=== PATIENT | male | born 1995 | race Caucasian/White ===

== ENCOUNTER 2016-09-02 20:10 | Emergency (ER) | payer OTHER ==
[2016-09-02] MEDS ORDERED: ONDANSETRON HCL INJ/PF 4 MG/2 ML SDV IV ONE (20:35)
[2016-09-02] MEDS ORDERED: MORPHINE SULFATE 10 MG/ML INJ IV ONE (20:35)
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
[2016-09-02 23:40] VITALS: BP 134/77
== END 2016-09-02 23:40 | disposition home or self-care (01) ==
LOC: ER 20:10
DX: S16.1XXA Strain of muscle, fascia and tendon at neck level, initial encounter (principal); S29.012A Strain of muscle and tendon of back wall of thorax, initial encounter; V43.52XA Car driver injured in collision with other type car in traffic accident, initial encounter; R51 Headache; M54.2 Cervicalgia; M89.8X8 Other specified disorders of bone, other site
CPT/HCPCS: 99284; 96374; 96375; 71010; 72110; 72070; 70450; 72125; J2270; J2405

== ENCOUNTER 2020-02-26 06:02 | Emergency (ER) | payer BC ==
--- NOTE | 2020-02-26 09:06 | ER Document Report ---
ED GI/ - General Chief Complaint: Abdominal Pain Stated Complaint: COVID EXPOSURE, STOMACH PAIN, DIARRHEA, HEADACHE Time Seen by Provider: 02/26/20 08:52 Mode of Arrival: Ambulatory Information source: Patient Notes: Otherwise healthy 24-year-old male patient presenting to the emergency depa rtment with complaints of left upper quadrant cramping. Patient reports the symptoms started yesterday. He has associated diarrhea but denies any fever, chills, nausea, vomiting. 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 Patient himself had COVID- 19 2 months ago, has since tested negative, states this feels different than when he had COVID-19 before. - Related Data Allergies/Adverse Reactions: No Known Allergies Allergy (Verified 02/26/20 08:47) Past Medical History - General Information source: Patient - Social History Smoking Status: Former Smoker Chew tobacco use (# tins/day): No Drug Abuse: None Family History: Reviewed & Not Pertinent Patient has homicidal ideation: No - Medical History Medical History: Negative Surgical Hx: Negative - Immunizations Immunizations up to date: Yes Review of Systems - Review of Systems Constitutional: No symptoms reported EENT: No symptoms reported Cardiovascular: No symptoms reported Respiratory: No symptoms reported Gastrointestinal: Abdominal pain Genitourinary: No symptoms reported Male Genitourinary: No symptoms reported Musculoskeletal: No symptoms reported Skin: No symptoms reported Hematologic/Lymphatic: No symptoms reported Neurological/Psychological: No symptoms reported Physical Exam - Vital signs Vitals: Temp Pulse Resp BP Pulse Ox 97.8 F 68 18 161/98 H 100 02/26/20 08:45 02/26/20 08:45 02/26/20 08:45 02/26/20 08:45 02/26/20 08:45 - Notes Notes: PHYSICAL EXAMINATION: GENERAL: Well-appearing, well-nourished and in no acute distress. HEAD: Atraumatic, normocephalic. EYES: Pupils equal round and reactive to light, extraocular movements intact, sclera anicteric, conjunctiva are normal. ENT: Nares patent, oropharynx clear without exudates. Moist mucous membranes. NECK: Normal range of motion, supple without lymphadenopathy LUNGS: Breath sounds clear to auscultation bilaterally and equal. No wheezes rales or rhonchi. HEART: Regular rate and rhythm without murmurs ABDOMEN: Soft, nondistended abdomen. Tenderness to palpation left upper quadrant. No guarding, no rebound. No masses appreciated. Musculoskeletal: Normal range of motion, no pitting or edema. No cyanosis. NEUROLOGICAL: Cranial nerves grossly intact. Normal speech, normal gait. Normal sensory, motor exams PSYCH: Normal mood, normal affect. SKIN: Warm, Dry, normal turgor, no rashes or lesions noted. Course - Re-evaluation Re-evalutation: 02/26/20 09:12 Patient appears well, nontoxic, vital signs reviewed and are within normal limits. Patient does not appear to be in any acute distress. Labs pending. Unlikely that this is COVID-19, patient's only symptoms are left upper quadrant cramping after lifting heavy boxes and also a few episodes of diarrhea. - Vital Signs Vital signs: Temp Pulse Resp BP Pulse Ox 97.8 F 68 18 161/98 H 100 02/26/20 08:45 02/26/20 08:45 02/26/20 08:45 02/26/20 08:45 02/26/20 08:45 - Laboratory Result Diagrams: 02/26/20 09:05 02/26/20 09:05 Laboratory results interpreted by me: 02/26/20 09:05 Glucose 134 H AST 72 H ALT 178 H Discharge - Discharge Clinical Impression: Abdominal cramping Condition: Stable Disposition: HOME, SELF-CARE Instructions: Antispasmodics ([facility]), Abdominal Pain ([facility]) Additional Instructions: Your work-up today was reassuring. Your labs were normal. Please take medication as prescribed. Please return to the emergency department with any of the warning signs as outlined on the abdominal pain instruction sheet. Try to increase the fiber in your diet to regulate your bowels. Prescriptions: Dicyclomine HCl [Bentyl 20 mg Tablet] 20 mg PO QID #40 tablet Forms: Return to Work
[2020-02-26 09:16] LABS: ABSOLUTE EOSINOPHILS # (AUTO) 0.1 10^3/uL (0.0-0.6); ABSOLUTE LYMPHOCYTES (AUTO) 1.5 10^3/uL (0.5-4.7); ABSOLUTE MONOCYTES (AUTO) 0.5 10^3/uL (0.1-1.4); ABSOLUTE NEUT (AUTO) 3.2 10^3/uL (1.7-8.2); BASOPHILS % (AUTO) 0.5 % (0-2); EOSINOPHILS % (AUTO) 1.9 % (0-6); HEMOGLOBIN 15.8 g/dL (13.5-17.0); LYMPHOCYTES % (AUTO) 27.4 % (13-45); MEAN CORPUSCULAR HEMOGLOBIN 30.3 pg (27.0-33.4); MEAN CORPUSCULAR HGB CONC 34.4 g/dL (32.0-36.0); MEAN CORPUSCULAR VOLUME 88 fl (80-97); MONOCYTES % (AUTO) 9.4 % (3-13); PLATELET COUNT 172 10^3/uL (150-450); RED BLOOD COUNT 5.22 10^6/uL (4.35-5.55); RED CELL DISTRIBUTION WIDTH 13.1 % (11.5-14.0); SEGMENTED NEUTROPHILS % (AUTO) 60.8 % (42-78); TOTAL CELLS COUNTED % (AUTO) 100 %; WHITE BLOOD COUNT 5.3 10^3/uL (4.0-10.5)
[2020-02-26 09:18] LABS: APPEARANCE,URINE CLEAR; BILIRUBIN,URINE NEGATIVE (NEGATIVE); COLOR,URINE YELLOW; GLUCOSE, URINE NEGATIVE (NEGATIVE); KETONES,URINE NEGATIVE (NEGATIVE); LEUKOCYTE ESTERASE,URINE NEGATIVE (NEGATIVE); NITRITE,URINE NEGATIVE (NEGATIVE); PROTEIN,URINE NEGATIVE (NEGATIVE); URINE SPECIFIC GRAVITY 1.023; UROBILINOGEN,URINE NEGATIVE mg/dL (<2.0)
[2020-02-26 09:37] LABS: ALBUMIN 4.5 g/dL (3.5-5.0); ALKALINE PHOSPHATASE 82 U/L (38-126); ANION GAP 7 (5-19); ASPARTATE AMINO TRANSFERASE 72 U/L (17-59); BILIRUBIN,TOTAL 0.6 mg/dL (0.2-1.3); BLOOD UREA NITROGEN 13 mg/dL (7-20); CALCIUM 9.4 mg/dL (8.4-10.2); CARBON DIOXIDE 26 mmol/L (22-30); CHLORIDE 104 mmol/L (98-107); GLUCOSE 134 mg/dL (75-110); TOTAL PROTEIN 7.4 g/dL (6.3-8.2)
[2020-02-26 09:38] LABS: POTASSIUM 4.3 mmol/L (3.6-5.0)
[2020-02-26] MEDS ORDERED: DICYCLOMINE HCL INJ 20 MG/2 ML AMPULE IM ONE (10:17)
[2020-02-26 12:33] VITALS: BP 148/82
== END 2020-02-26 12:15 | disposition home or self-care (01) ==
LOC: ER 06:02
DX: R10.12 Left upper quadrant pain (principal); X50.0XXA Overexertion from strenuous movement or load, initial encounter; Y93.89 Activity, other specified; Y99.0 Civilian activity done for income or pay; R10.812 Left upper quadrant abdominal tenderness; R19.7 Diarrhea, unspecified; Z87.891 Personal history of nicotine dependence; Z20.828 Contact with and (suspected) exposure to other viral communicable diseases
CPT/HCPCS: 99284; 96372; 36415; 83690; 85025; 80053; 81001; J0500

== ENCOUNTER 2020-03-28 11:06 | Emergency (ER) | payer BC ==
--- NOTE | 2020-03-28 11:39 | ER Document Report ---
ED General - General Chief Complaint: Sore Throat Stated Complaint: SORE THROAT Time Seen by Provider: 03/28/20 11:39 Primary Care Provider: ADA WILLOUGHBY PA-C [Primary Care Provider] - Follow up as needed Mode of Arrival: Ambulatory Information source: Patient Notes: 03/28/20 11:28 - ED Nursing Note by LARA NORMAN Num: [id number] : 1995 Patient Age: 24 Patient presents to the ED with complaints of sore pain. Patient states it started yesterday and has continued today. Patient describes the pain as sharp, stabbing pain with constant throbbing. Strep and flu sample sent down to lab. will ctm MY NOTES today 24-year-old male arrives by POV after having 24 hours of severe sore throat. Patient reports he works at [employer] and will need a work note. He lives with his father. His father has no symptoms he denies any symptoms that he knows of with his coworkers. He denies being around any little children or sick animals. Denies any skin rash any nuchal rigidity. He reports he has a familiar history of migraines but has no headaches today. Oral pharyngeal physical exam reveals edematous uvula with injection; patient denies any hematuria or flank pain or recent strep throat. He did test positive for alvarado virus in late October and was on no medications just quarantined for 2 to 3 weeks. TRAVEL OUTSIDE OF THE [place] IN LAST 30 DAYS: No - HPI Onset: Yesterday Onset/Duration: Sudden, Persistent Quality of pain: Achy Severity: Mild Pain Level: 1 Associated symptoms: Sore throat, Weakness Exacerbated by: Denies Relieved by: Denies Similar symptoms previously: Yes Recently seen / treated by doctor: No - Related Data Allergies/Adverse Reactions: No Known Allergies Allergy (Verified 02/26/20 08:47) Past Medical History - General Information source: Patient - Social History Smoking Status: Never Smoker Cigarette use (# per day): No Chew tobacco use (# tins/day): No Smoking Education Provided: No Frequency of alcohol use: None Drug Abuse: None Lives with: Family Family History: Reviewed & Not Pertinent Patient has suicidal ideation: No Patient has homicidal ideation: No - Immunizations Immunizations up to date: Yes Review of Systems - Review of Systems Constitutional: See HPI, Weakness, Recent illness EENT: See HPI, Throat pain, Difficulty swallowing, Throat swelling Cardiovascular: No symptoms reported Respiratory: No symptoms reported Gastrointestinal: No symptoms reported Genitourinary: No symptoms reported Male Genitourinary: No symptoms reported Musculoskeletal: No symptoms reported Skin: No symptoms reported Hematologic/Lymphatic: No symptoms reported Neurological/Psychological: No symptoms reported Physical Exam - Vital signs Vitals: Temp Pulse Resp BP Pulse Ox 98.5 F 64 20 146/85 H 98 03/28/20 11:11 03/28/20 11:11 03/28/20 11:11 03/28/20 11:11 03/28/20 11:11 Interpretation: Hypertensive - HEENT Head: Normocephalic, Atraumatic Eyes: Normal Pupils: PERRL Sinus: Normal Nasal: Normal Mouth/Lips: Normal Mucous membranes: Normal Pharynx: Erythema Neck: Normal - Respiratory Respiratory status: No respiratory distress Chest status: Nontender Breath sounds: Normal Chest palpation: Normal - Cardiovascular Rhythm: Regular Heart sounds: Normal auscultation Murmur: No - Abdominal Inspection: Normal Distension: No distension Bowel sounds: Normal Tenderness: Nontender Organomegaly: No organomegaly - Rectal Prostate: Other - deferred - Genitourinary Scrotum: Other - deferred - Back Back: Normal - Extremities General upper extremity: Normal inspection General lower extremity: Normal inspection - Neurological Neuro grossly intact: Yes Cognition: Normal Orientation: AAOx4 [place] Coma Scale Eye Opening: Spontaneous [place] Coma Scale Verbal: Oriented [place] Coma Scale Motor: Obeys Commands [place] Coma Scale Total: 15 Speech: Normal Motor strength normal: LUE, RUE, LLE, RLE Sensory: Normal - Psychological Associated symptoms: Normal affect - Skin Skin Temperature: Warm Skin Moisture: Dry Course - Vital Signs Vital signs: Temp Pulse Resp BP Pulse Ox 98.5 F 65 16 138/75 H 99 03/28/20 12:44 03/28/20 12:44 03/28/20 12:44 03/28/20 12:44 03/28/20 12:44 Discharge - Discharge Clinical Impression: Influenza B Pharyngitis Qualifiers: Pharyngitis/tonsillitis etiology: unspecified etiology Qualified Code(s): J02.9 - Acute pharyngitis, unspecified Condition: Good Disposition: HOME, SELF-CARE Additional Instructions: Follow-up with personal doctor next week return to ER as needed encourage fluids take medicines as directed avoid drinking orange juice or eating caustic foods like pizza or popcorn; may need bananas rice applesauce Prescriptions: Azithromycin [Zithromax 250 mg Tablet] 250 mg PO ASDIR PRN #6 tablet PRN Reason: Forms: Return to Work Referrals: ADA WILLOUGHBY PA-C [Primary Care Provider] - Follow up as needed
[2020-03-28 12:45] VITALS: BP 138/75
[2020-03-28 12:55] LABS: A TYPE INFLUENZA AG NEGATIVE (NEGATIVE); B INFLUENZA AG POSITIVE (NEGATIVE)
== END 2020-03-28 12:20 | disposition home or self-care (01) ==
LOC: ER 11:06
DX: J11.1 Influenza due to unidentified influenza virus with other respiratory manifestations (principal); R53.1 Weakness
CPT/HCPCS: 87070; 87804; 87880; 99284

== ENCOUNTER 2020-04-02 08:15 | Emergency (ER) | payer BC ==
--- NOTE | 2020-04-02 12:06 | ER Document Report ---
ED Medical Screen (RME) - General Chief Complaint: Arm Pain Stated Complaint: ARM PAIN Time Seen by Provider: 04/02/20 11:59 Primary Care Provider: ADA WILLOUGHBY PA-C [Primary Care Provider] - Follow up as needed Mode of Arrival: Ambulatory Information source: Patient Notes: 24-year-old male presented to ED for a bruise-like area with a clear [place] around on the right upper arm. He states he does not remember any injury but is very tender to palpation. It is very hard at that area. He is alert oriented respirations regular nonlabored speaking in full sentences. He states he has had blood drawn but that was 2 weeks ago in the other arm. Ordered PT PTT blood work and venous Doppler for the upper arm. I have greeted and performed a rapid initial assessment of this patient. A comprehensive ED assessment and evaluation of the patient, analysis of test results and completion of medical decision making process will be conducted by an additional ED providers. TRAVEL OUTSIDE OF THE [place] IN LAST 30 DAYS: No - Related Data Allergies/Adverse Reactions: No Known Allergies Allergy (Verified 02/26/20 08:47) Past Medical History - Past Medical History Cardiac Medical History: Reports: Hx Hypertension - Immunizations Immunizations up to date: Yes Physical Exam - Vital signs Vitals: Temp Pulse Resp BP Pulse Ox 98.2 F 76 18 148/97 H 95 04/02/20 08:29 04/02/20 08:29 04/02/20 08:29 04/02/20 08:29 04/02/20 08:29 Course - Vital Signs Vital signs: Temp Pulse Resp BP Pulse Ox 98.2 F 76 18 148/97 H 95 04/02/20 08:29 04/02/20 08:29 04/02/20 08:29 04/02/20 08:29 04/02/20 08:29 Doctor's Discharge - Discharge Referrals: ADA WILLOUGHBY PA-C [Primary Care Provider] - Follow up as needed
[2020-04-02 12:30] LABS: ABSOLUTE BASOPHILS # (AUTO) 0.1 10^3/uL (0.0-0.2); ABSOLUTE EOSINOPHILS # (AUTO) 0.1 10^3/uL (0.0-0.6); ABSOLUTE LYMPHOCYTES (AUTO) 1.9 10^3/uL (0.5-4.7); ABSOLUTE MONOCYTES (AUTO) 0.5 10^3/uL (0.1-1.4); ABSOLUTE NEUT (AUTO) 3.8 10^3/uL (1.7-8.2); BASOPHILS % (AUTO) 0.9 % (0-2); EOSINOPHILS % (AUTO) 1.5 % (0-6); HEMATOCRIT 48.4 % (37.9-51.0); HEMOGLOBIN 17.3 g/dL (13.5-17.0); LYMPHOCYTES % (AUTO) 29.6 % (13-45); MEAN CORPUSCULAR HGB CONC 35.8 g/dL (32.0-36.0); MEAN CORPUSCULAR VOLUME 87 fl (80-97); MONOCYTES % (AUTO) 8.4 % (3-13); PLATELET COUNT 204 10^3/uL (150-450); RED BLOOD COUNT 5.59 10^6/uL (4.35-5.55); RED CELL DISTRIBUTION WIDTH 13.1 % (11.5-14.0); SEGMENTED NEUTROPHILS % (AUTO) 59.6 % (42-78); TOTAL CELLS COUNTED % (AUTO) 100 %; WHITE BLOOD COUNT 6.4 10^3/uL (4.0-10.5)
[2020-04-02 12:35] LABS: INTERNATIONAL RATION (INR) 0.96
[2020-04-02 12:36] LABS: PARTIAL THROMBOPLASTIN TIME 26.7 SEC (23.5-35.8)
[2020-04-02 12:50] LABS: ALKALINE PHOSPHATASE 84 U/L (38-126); ANION GAP 11 (5-19); ASPARTATE AMINO TRANSFERASE 61 U/L (17-59); BILIRUBIN,DIRECT 0.3 mg/dL (0.0-0.4); BILIRUBIN,TOTAL 0.8 mg/dL (0.2-1.3); BLOOD UREA NITROGEN 15 mg/dL (7-20); CARBON DIOXIDE 26 mmol/L (22-30); CHLORIDE 103 mmol/L (98-107); GLUCOSE 117 mg/dL (75-110); POTASSIUM 4.4 mmol/L (3.6-5.0); TOTAL PROTEIN 8.1 g/dL (6.3-8.2)
--- NOTE | 2020-04-02 14:33 | ER Document Report ---
ED General - General Chief Complaint: Arm Pain Stated Complaint: ARM PAIN Time Seen by Provider: 04/02/20 11:59 Primary Care Provider: ADA WILLOUGHBY PA-C [Primary Care Provider] - Follow up as needed Mode of Arrival: Ambulatory TRAVEL OUTSIDE OF THE [place] 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 He has been doing his work for several years. His mother noted a large bruise on his biceps area of right arm and encouraged him to come to the doctor because he could not recall any trauma. He says the area is moderately sore. He denies taking any aspirin. He is not on any type of anticoagulation. He takes an unknown antihypertensive medication is been on for several years. He denies any other abnormal bleeding or bruising. - Related Data Allergies/Adverse Reactions: No Known Allergies Allergy (Verified 02/26/20 08:47) Past Medical History - General Information source: Patient - Social History Smoking Status: Never Smoker Frequency of alcohol use: None Drug Abuse: None Lives with: Family Family History: Reviewed & Not Pertinent - Past Medical History Cardiac Medical History: Reports: Hx Hypertension Pulmonary Medical History: Reports: None EENT Medical History: Reports: None Neurological Medical History: Reports: None Endocrine Medical History: Reports: None Renal/ Medical History: Reports: None Malignancy Medical History: Reports None GI Medical History: Reports: None Musculoskeletal Medical History: Reports None Skin Medical History: Reports None Psychiatric Medical History: Reports: None Traumatic Medical History: Reports: None Infectious Medical History: Reports: None. Denies: Hx Hepatitis Past Surgical History: Reports: None - Immunizations Immunizations up to date: Yes Review of Systems - Review of Systems Notes: Constitutional: Negative for fever. Weight stable. HENT: Negative for sore throat. No epistaxis. Eyes: Negative for visual changes. Cardiovascular: Negative for chest pain. Respiratory: Negative for shortness of breath. Gastrointestinal: Negative for abdominal pain, vomiting or diarrhea. No melena or hematochezia. Genitourinary: Negative for dysuria. Negative for hematuria. Musculoskeletal: Negative for back pain. Skin: As per HPI. Neurological: Negative for headaches, weakness or numbness. 10 point ROS negative except as marked above and in HPI. Physical Exam - Vital signs Vitals: Temp Pulse Resp BP Pulse Ox 98.2 F 76 18 148/97 H 95 04/02/20 08:29 04/02/20 08:29 04/02/20 08:29 04/02/20 08:29 04/02/20 08:29 - Notes Notes: GENERAL: Stocky male patient of approximately stated age appearing in no acute distress. SKIN: 5.5 cm hematoma mid right biceps area which appears to be several days old. No other bruising noted. No petechiae. Good turgor no rashes. HEAD: Normocephalic atraumatic. EYES: PERRLA. EOMI. Conjunctivae and sclerae clear. No sub-conjunctival h emorrhages present. EARS: CANALS AND TMS CLEAR. NOSE: CLEAR. MOUTH: Moist mucosa. Good dentition. No stridor or edema. No drooling. NECK: Supple. No masses or thyromegaly. No adenopathy. Carotids 2+ without bruits. No JVD. BACK: Symmetrical without tenderness. CHEST: Respirations unlabored. Breath sounds clear and symmetrical. HEART: Regular rhythm. No murmur gallop or rub. ABDOMEN: Soft nontender without masses, organomegaly or rebound. Bowel sounds normally active. No bruits. GENITALIA: Deferred. EXTREMITIES: No edema. No calf tenderness. Cap refill less than 1.5 seconds. Dorsalis pedis and posterior tibial pulses 3+ and symmetrical. NEUROLOGICAL: GCS 15. Alert and oriented x3. Normal gait. Fluent speech. Cranial nerves II through XII intact. Sensorimotor and cerebellar normal. Normal tone. PSYCHIATRIC: Appropriate affect. Course - Re-evaluation Re-evalutation: 04/02/20 14:35 CBC normal. PT and PTT are normal. CMP is remarkable for mild elevation of transaminases and we note that these values have been present since a previous visit of 03/05/2020. Reviewing the chart from that visit he had some nausea vomiting and diarrhea at that time. He denies any known history of viral hep atitis. He denies any IV drug abuse. I think this is an uncomplicated traumatic bruise to the right biceps area although he does not specifically recall any trauma. He does however do a lot of strenuous physical labor and I think this is in likely to be an adequate explanation for the bruising. I think the finding of mild elevation in transaminases is likely unrelated to his presenting complaint. This does however raise possibility of undiagnosed viral hepatitis. He is not currently jaundiced or clinically ill. I recommended that he follow-up on this as well as his persistent blood pressure elevation with his primary care physician within the next 1 week. Findings, clinical impression and plan of treatment have been discussed with patient/family. Understanding of current findings and recommendations has been acknowledged by them and there is agreement regarding disposition and follow-up. - Vital Signs Vital signs: Temp Pulse Resp BP Pulse Ox 98.5 F 76 18 150/96 H 100 04/02/20 14:10 04/02/20 14:10 04/02/20 14:10 04/02/20 14:10 04/02/20 14:10 - Laboratory Result Diagrams: 04/02/20 12:19 04/02/20 12:19 Laboratory results interpreted by me: 04/02/20 04/02/20 12:19 12:19 RBC 5.59 H Hgb 17.3 H Glucose 117 H AST 61 H ALT 132 H Discharge - Discharge Clinical Impression: Bruise right upper extremity, Abnormal liver function test Condition: Stable Disposition: HOME, SELF-CARE Additional Instructions: See your doctor within the next 1 week for reevaluation of abnormal liver function testing and recheck of your blood pressure. Return here as needed if you develop other areas of significant bruising or if you have any abnormal bleeding from any source in the body. Forms: Elevated Blood Pressure, Return to Work Referrals: ADA WILLOUGHBY PA-C [Primary Care Provider] - Follow up as needed
[2020-04-02 15:02] VITALS: BP 144/88
--- NOTE | 2020-04-02 15:13 | RADIOLOGY REPORT (SQ) ---
EXAM DESCRIPTION: VENOUS UNILATERAL UPPER IMAGES COMPLETED DATE/TIME: 04/02/2020 3:00 pm REASON FOR STUDY: Firm bruise with no injury to the upper arm COMPARISON: None. TECHNIQUE: Dynamic and static kee scale and color images acquired of the right arm venous system. S elected spectral images acquired with additional compression and augmentation maneuvers. Images store d on PACS. LIMITATIONS: None. FINDINGS: INTERNAL JUGULAR VEIN: Normal phasicity, compression, augmentation. No visualized echogeni c material on kee scale. No defects on color images. Comparison opposite side normal. SUBCLAVIAN VEIN: Normal compression, augmentation. No visualized echogenic material on kee scale. No defects on color images. AXILLARY VEIN: Normal compression, augmentation. No visualized echogenic material on kee scale. No d efects on color images. BRACHIAL VEIN: Normal compression, augmentation. No visualized echogenic material on kee scale. No d efects on color images. BASILIC VEIN: Normal compression, augmentation. No visualized echogenic material on kee scale. No de fects on color images. CEPHALIC VEIN: Normal compression, augmentation. No visualized echogenic material on kee scale. No d efects on color images. OTHER: No other significant finding. CONTRALATERAL SUBCLAVIAN VEIN AND INTERNAL JUGULAR VEIN: Not imaged. IMPRESSION: NO EVIDENCE DVT OR SVT IN THE RIGHT ARM. TECHNICAL DOCUMENTATION: JOB ID: [id number] 2010 [employer]- All Rights Reserved Reading location - IP/workstation name: [email or web address]
== END 2020-04-02 15:02 | disposition home or self-care (01) ==
LOC: ER 08:15
DX: S40.021A Contusion of right upper arm, initial encounter (principal); X58.XXXA Exposure to other specified factors, initial encounter; R94.5 Abnormal results of liver function studies; I10 Essential (primary) hypertension
CPT/HCPCS: 36415; 80053; 85025; 85610; 85730; 93971; 99284

== ENCOUNTER 2020-04-07 08:35 | Emergency (ER) | payer BC ==
--- NOTE | 2020-04-07 12:13 | ER Document Report ---
ED ENT - General Chief Complaint: Sore Throat Stated Complaint: SORE THROAT Time Seen by Provider: 04/07/20 11:34 Primary Care Provider: ADA WILLOUGHBY PA-C [Primary Care Provider] - Follow up as needed Notes: CHIEF COMPLAINT: Continued sore throat HPI: 24-year-old male presenting for continued sore throat over the last 2 to 3 weeks. Patient states that he was seen several times in the emergency department for sore throat complaint had congestion slight cough initially. Patient states on March 28 he was diagnosed with influenza B states that is feeling better but he still has sore throat with swallowing and occasionally with talking. No voice change. Has not followed up with a primary care provider for evaluation of symptoms. No fevers. ROS: See HPI - all other systems were reviewed and are otherwise negative Constitutional: no fever Eyes: no drainage, no blurred vision ENT: no runny nose, + sore throat Cardiovascular: no chest pain Resp: no SOB, no cough GI: no vomiting, no diarrhea, no abdominal pain : no dysuria Integumentary: no rash Allergy: no hives Musculoskeletal: no extremity pain or swelling Neurological: no numbness/tingling, no weakness MEDICATIONS: I agree with the patient medications as charted by the RN. ALLERGIES: I agree with the allergies as charted by the RN. PAST MEDICAL HISTORY/PAST SURGICAL HISTORY: Reviewed and agree as charted by RN. SOCIAL HISTORY: Reviewed and agree as charted by RN. FAMILY HISTORY: No significant familial comorbid conditions directly related to patient complaint EXAM: Reviewed vital signs as charted by RN. CONSTITUTIONAL: Alert and oriented and responds appropriately to questions. Well-appearing; well-nourished HEAD: Normocephalic; atraumatic EYES: PERRL; Conjunctivae clear, sclerae non-icteric ENT: normal nose; no rhinorrhea; moist mucous membranes; pharynx without lesions noted, no uvula edema or deviation, no tonsillar hypertrophy, phonation normal NECK: Supple without meningismus; non-tender; no cervical lymphadenopathy, no masses CARD: RRR; no murmurs, no clicks, no rubs, no gallops; symmetric distal pulses RESP: Normal chest excursion without splinting or tachypnea; breath sounds clear and equal bilaterally; no wheezes, no rhonchi, no rales, pulse oximetry 98% on room air not hypoxic ABD/GI: Normal bowel sounds; non-distended; soft, non-tender, no rebound, no guarding; no palpable organomegaly or masses. BACK: The back appears normal and is non-tender to palpation, there is no CVA tenderness EXT: Normal ROM in all joints; no cyanosis, no effusions, no edema SKIN: Normal color for age and race; warm; dry; good turgor; no acute lesions noted NEURO: Moves all extremities equally; Motor and sensory function intact PSYCH: The patient's mood and manner are appropriate. Grooming and personal hygiene are appropriate. MDM: 24-year-old male presenting for continued sore throat there is no pharyngeal erythema or exudate. Phonation is normal. No significant anterior lymphadenopathy. On review of the patient records she has been tested for strep twice and throat cultures have not grown out strep but have grown out normal tameka. Will obtain a Monospot as this has not yet been obtained. If negative will treat symptomatically refer to ENT for further follow-up TRAVEL OUTSIDE OF THE [place] IN LAST 30 DAYS: No - Related Data Allergies/Adverse Reactions: No Known Allergies Allergy (Verified 02/26/20 08:47) Home Medications: HTN meds Past Medical History - Social History Smoking Status: Never Smoker Family History: Reviewed & Not Pertinent Patient has homicidal ideation: No - Past Medical History Cardiac Medical History: Reports: Hx Hypertension GI Medical History: Denies: Hx Hepatitis Infectious Medical History: Denies: Hx Hepatitis - Immunizations Immunizations up to date: Yes Physical Exam - Vital signs Vitals: Temp Pulse Resp BP Pulse Ox 99.1 F 93 20 150/86 H 98 04/07/20 09:49 04/07/20 09:49 04/07/20 09:49 04/07/20 09:49 04/07/20 09:49 Course - Re-evaluation Re-evalutation: 04/07/20 12:41 Mononucleosis test today was negative. Will refer to ENT for follow-up. Will place patient on Voltaren for pain - Vital Signs Vital signs: Temp Pulse Resp BP Pulse Ox 99.1 F 93 20 150/86 H 98 04/07/20 09:49 04/07/20 09:49 04/07/20 09:49 04/07/20 09:49 04/07/20 09:49 Discharge - Discharge Clinical Impression: Sore throat (viral) Condition: Stable Disposition: HOME, SELF-CARE Additional Instructions: Your mononucleosis test today was negative. Follow-up closely with ENT for further evaluation and treatment call for appointment. Take the Voltaren to help with the throat discomfort Prescriptions: Diclofenac Sodium [Voltaren 50 Mg Tablet.] 50 mg PO BID #20 tablet. Referrals: ADA WILLOUGHBY PA-C [Primary Care Provider] - Follow up as needed CASTILLO PILLAI DO [ASSOCIATE] - Follow up as needed
[2020-04-07 13:30] VITALS: BP 134/80
== END 2020-04-07 13:30 | disposition home or self-care (01) ==
LOC: ER 08:35
DX: J02.8 Acute pharyngitis due to other specified organisms (principal); B97.89 Other viral agents as the cause of diseases classified elsewhere; I10 Essential (primary) hypertension; Z79.899 Other long term (current) drug therapy
CPT/HCPCS: 36415; 86308; 87070; 87880; 99282

== ENCOUNTER 2020-04-08 20:44 | Emergency (ER) | payer BC ==
[2020-04-08 21:00] VITALS: BP 150/100
--- NOTE | 2020-04-08 21:50 | ER Document Report ---
ED General - General Chief Complaint: Other Stated Complaint: HEADACHE Time Seen by Provider: 04/08/20 20:57 Primary Care Provider: ADA WILLOUGHBY PA-C [Primary Care Provider] - Follow up as needed Mode of Arrival: Ambulatory Information source: Patient Notes: 24-year-old male coming in today for COVID testing. Apparently he tested positive for alvarado virus 5 months ago. Recently at work he was apparently exposed to a coworker who recently just tested positive. He was instructed to get retested to make sure he was not infected again. He currently has no symptoms whatsoever. TRAVEL OUTSIDE OF THE [place] IN LAST 30 DAYS: No - Related Data Allergies/Adverse Reactions: No Known Allergies Allergy (Verified 04/08/20 21:00) Home Medications: BP meds Past Medical History - General Information source: Patient - Social History Smoking Status: Former Smoker Family History: Reviewed & Not Pertinent Patient has homicidal ideation: No - Past Medical History Cardiac Medical History: Reports: Hx Hypertension GI Medical History: Denies: Hx Hepatitis Infectious Medical History: Denies: Hx Hepatitis - Immunizations Immunizations up to date: Yes Review of Systems - Review of Systems Notes: Constitutional: No fevers. No chills. EENT: No eye redness. No eye pain. No ear pain. No sore throat. Cardiovascular: No chest pain. No palpitations. Respiratory: No cough. No shortness of breath. No respiratory distress. Gastrointestinal: No abdominal pain. No nausea, vomiting, or diarrhea. Genitourinary: Atraumatic. No lesions. No pain. No discharge. Musculoskeletal: Atraumatic. No swelling. No deformities. Skin: No rash or lesions. Lymphatic: No swollen lymph nodes. Neurologic: No headache. No syncope. Psychiatric: No suicidal or homicidal ideation. Physical Exam - Vital signs Vitals: Temp Pulse Resp BP Pulse Ox 98.4 F 110 H 16 150/100 H 97 04/08/20 20:58 04/08/20 20:58 04/08/20 20:58 04/08/20 20:58 04/08/20 20:58 - Notes Notes: General: Well-developed, well-nourished. In no acute distress. Non-toxic appearing. Cardiac: Well-perfused. Regular rate and rhythm. No murmurs, rubs, or gallops. Pulmonary: No respiratory distress. No cyanosis. Bilateral lung fiels are clear to auscultation. Abdominal: Non-distended. Non-rigid. Bowels sounds are present in all four quadrants. No guarding or rebound. HEENT: Head is atraumatic. Conjunctivae not reddened. No tearing. PERRL. EOMI. Orbits atraumatic. No periorbital swelling or erythema. Oropharynx is without erythema, swelling, or exudates. Neck: Supple. No adenopathy. No meningismus. Dermatologic: Warm with good turgor. No rash. Atraumatic. Chest: Atraumatic. No chest wall tenderness to palpation. Musculoskeletal: Moves all extremities well. No range of motion deficits. no muscular or joint tenderness. No paraspinal muscle tenderness. no midline spinal tenderness or step-off. Genitourinary: Examination deferred Neurologic: No gross neurologic deficits. Psychiatric: Normal mood. Course - Vital Signs Vital signs: Temp Pulse Resp BP Pulse Ox 98.4 F 110 H 16 150/100 H 97 04/08/20 20:58 04/08/20 20:58 04/08/20 20:58 04/08/20 20:58 04/08/20 20:58 Discharge - Discharge Clinical Impression: Elevated blood pressure reading, Exposure to COVID-19 virus Condition: Good Disposition: HOME, SELF-CARE Additional Instructions: Typical results for the coronavirus test are in 72 to 96 hours. You should receive correspondence from the health department. The hospital also email you regarding your results. Stay home from work and quarantine until you know for sure. Forms: Return to Work Referrals: ADA WILLOUGHBY PA-C [Primary Care Provider] - Follow up as needed
== END 2020-04-08 21:59 | disposition home or self-care (01) ==
LOC: ER 20:44
DX: Z20.828 Contact with and (suspected) exposure to other viral communicable diseases (principal); I10 Essential (primary) hypertension; Z79.899 Other long term (current) drug therapy; Z86.19 Personal history of other infectious and parasitic diseases; Z87.891 Personal history of nicotine dependence
CPT/HCPCS: 99283; U0003; C9803; 87635

== ENCOUNTER 2020-04-16 21:52 | Emergency (ER) | payer BC ==
[2020-04-16] MEDS ORDERED: DOCUSATE SODIUM 100 MG/10 ML UDC AS ONE ×2 (22:24→23:32)
--- NOTE | 2020-04-16 22:25 | ER Document Report ---
ED Medical Screen (RME) - General Chief Complaint: Ear Pain Stated Complaint: LEFT EAR PAIN Time Seen by Provider: 04/16/20 22:24 Primary Care Provider: ADA WILLOUGHBY PA-C [Primary Care Provider] - Follow up as needed Notes: Patient complains of left ear pain that started today. Patient denies any fever or drainage from the ear. I have greeted and performed a rapid initial assessment of this patient. A comprehensive ED assessment and evaluation of the patient, analysis of test results and completion of the medical decision making process will be conducted by additional ED providers. TRAVEL OUTSIDE OF THE [place] IN LAST 30 DAYS: No - Related Data Allergies/Adverse Reactions: No Known Allergies Allergy (Verified 04/08/20 21:00) Past Medical History - Past Medical History Cardiac Medical History: Reports: Hx Hypertension GI Medical History: Denies: Hx Hepatitis Infectious Medical History: Denies: Hx Hepatitis - Immunizations Immunizations up to date: Yes Physical Exam - Vital signs Vitals: Temp Pulse Resp BP Pulse Ox 98.2 F 103 H 20 134/81 H 97 04/16/20 22:11 04/16/20 22:11 04/16/20 22:11 04/16/20 22:11 04/16/20 22:11 - General General appearance: Appears well, Alert Notes: No pain with movement of left helix, cerumen impaction to left ear Course - Vital Signs Vital signs: Temp Pulse Resp BP Pulse Ox 98.2 F 103 H 20 134/81 H 97 04/16/20 22:11 04/16/20 22:11 04/16/20 22:11 04/16/20 22:11 04/16/20 22:11 Doctor's Discharge - Discharge Referrals: ADA WILLOUGHBY PA-C [Primary Care Provider] - Follow up as needed
--- NOTE | 2020-04-16 23:58 | ER Document Report ---
HPI - HPI Time Seen by Provider: 04/16/20 22:24 Pain Level: 5 Context: Patient is a 24-year-old male with a history of hypertension who presents emergency department with a chief complaint of left ear pain. Patient states that his ear pain started tonight. Patient has a history of cerumen impactions in the past. Patient is currently with Colace in his left ear canal. In triage, patient had hard, dried cerumen. Denies any fever, body aches, or chills. - ROS Systems Reviewed and Negative: Yes All other systems reviewed and negative - CONSTITUTIONAL Constitutional: DENIES: Fever - EENT EENT: REPORTS: Ear Pain. DENIES: Sore Throat, Nasal Drainage-Clear, Nasal Drainage-Purulent, Congestion, Eye problems - NEURO Neurology: REPORTS: Headache - REPRODUCTIVE Reproductive: DENIES: : - DERM Skin Color: Normal Skin Problems: None Past Medical History - General Information source: Patient - Social History Smoking Status: Unknown if Ever Smoked Family History: Reviewed & Not Pertinent - Past Medical History Cardiac Medical History: Reports: Hx Hypertension GI Medical History: Denies: Hx Hepatitis Infectious Medical History: Denies: Hx Hepatitis - Immunizations Immunizations up to date: Yes Vertical Provider Document - CONSTITUTIONAL Agree With Documented VS: Yes Exam Limitations: No Limitations General Appearance: No Apparent Distress - INFECTION CONTROL TRAVEL OUTSIDE OF THE [place] IN LAST 30 DAYS: No - HEENT HEENT: Atraumatic, Normocephalic, PERRLA - NECK Neck: Normal Inspection - RESPIRATORY Respiratory: Breath Sounds Normal, No Respiratory Distress - CARDIOVASCULAR Cardiovascular: Regular Rate, Regular Rhythm Pulses: Normal: Radial - MUSCULOSKELETAL/EXTREMETIES Musculoskeletal/Extremeties: FROM - NEURO Level of Consciousness: Awake, Alert, Appropriate Motor/Sensory: No Motor Deficit, No Sensory Deficit - DERM Integumentary: Warm, Dry, No Rash Course - Re-evaluation Re-evalutation: 04/17/20 00:13 Patient states that he is now able to hear. He does have some edema and er ythema noted to his external auditory canal. Will place him on Ciprodex drops. No tenderness at the mastoid process. I have a low suspicion for mastoiditis. He will follow-up with ENT for cerumen impaction. Follow-up precautions were given. Verbal discharge instructions were given to the patient. They verbalized understanding. They are stable for discharge. - Vital Signs Vital signs: Temp Pulse Resp BP Pulse Ox 98.2 F 103 H 20 134/81 H 97 04/16/20 22:11 04/16/20 22:11 04/16/20 22:11 04/16/20 22:11 04/16/20 22:11 Discharge - Discharge Clinical Impression: Impacted cerumen of left ear Otitis externa Qualifiers: Otitis externa type: unspecified type Chronicity: acute Laterality: left Qualified Code(s): H60.502 - Unspecified acute noninfective otitis externa, left ear Headache Qualifiers: Headache type: other headache syndrome Qualified Code(s): G44.89 - Other headache syndrome Condition: Stable Disposition: HOME, SELF-CARE Additional Instructions: You were seen today in emergency department for left ear pain. You have a wax in your ears. It was cleaned out in the emergency department. Please follow-up with ENT if you continue to have problems with earwax. You start Debrox as needed for clean your ears. Sure not to use Q-tips to clean your ears. You can use a washcloth and water to clean your ears. Apply 4 drops of the Ciprodex eardrops to your left ear twice a day for 7 days. Continue ibuprofen and Tylenol for headache or pain. Prescriptions: Carbamide Peroxide [Debrox 6.5 % Otic Drops 15 ml] 10 drop OT DAILY PRN #[id number] PRN Reason: Referrals: ADA WILLOUGHBY PA-C [Primary Care Provider] - Follow up as needed CASTILLO PILLAI DO [ASSOCIATE] - Follow up as needed
[2020-04-17] MEDS ORDERED: CIPROFLOXACIN HCL/DEXAMETH OTIC DROP 7.5 ML AS ONE (00:16)
[2020-04-17 01:28] VITALS: BP 131/88
== END 2020-04-17 01:29 | disposition home or self-care (01) ==
LOC: ER 21:52
DX: H60.502 Unspecified acute noninfective otitis externa, left ear (principal); H61.22 Impacted cerumen, left ear; H92.02 Otalgia, left ear; R51.9 Headache, unspecified; I10 Essential (primary) hypertension
CPT/HCPCS: 99283; J3490

== ENCOUNTER 2020-04-20 22:02 | Emergency (ER) | payer OTHER, BC ==
[2020-04-20] MEDS ORDERED: IBUPROFEN 600 MG TABLET PO ONE (23:57)
--- NOTE | 2020-04-21 00:03 | ER Document Report ---
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 TRAVEL OUTSIDE OF THE [place] IN LAST 30 DAYS: No - Related Data Allergies/Adverse Reactions: No Known Allergies Allergy (Verified 04/08/20 21:00) Past Medical History - Social History Smoking Status: Unknown if Ever Smoked Family History: Reviewed & Not Pertinent - Past Medical History Cardiac Medical History: Reports: Hx Hypertension GI Medical History: Denies: Hx Hepatitis Infectious Medical History: Denies: Hx Hepatitis - Immunizations Immunizations up to date: Yes Review of Systems - Review of Systems Notes: Constitutional: No fevers. No chills. EENT: No eye redness. No eye pain. No ear pain. No sore throat. Cardiovascular: No chest pain. No palpitations. Respiratory: No cough. No shortness of breath. No respiratory distress. Gastrointestinal: No abdominal pain. No nausea, vomiting, or diarrhea. Genitourinary: Atraumatic. No lesions. No pain. No discharge. Musculoskeletal: Atraumatic. No swelling. No deformities. Positive for right shoulder pain Skin: No rash or lesions. Lymphatic: No swollen lymph nodes. Neurologic: No headache. No syncope. Psychiatric: No suicidal or homicidal ideation. Physical Exam - Notes Notes: General: Well-developed, well-nourished. In no acute distress. Non-toxic appearing. Cardiac: Well-perfused. Regular rate and rhythm. No murmurs, rubs, or gallops. Pulmonary: No respiratory distress. No cyanosis. Bilateral lung silva are clear to auscultation. Abdominal: Non-distended. Non-rigid. Bowels sounds are present in all four quadrants. No guarding or rebound. HEENT: Head is atraumatic. Conjunctivae not reddened. No tearing. PERRL. EOMI. Orbits atraumatic. No periorbital swelling or erythema. Oropharynx is without erythema, swelling, or exudates. Neck: Supple. No adenopathy. No meningismus. Dermatologic: Warm with good turgor. No rash. Atraumatic. Chest: Atraumatic. No chest wall tenderness to palpation. Musculoskeletal: Moves all extremities well. No range of motion deficits. no muscular or joint tenderness. No paraspinal muscle tenderness. no midline spinal tenderness or step-off. Right posterior shoulder tenderness to palpation. No bony deformities. No swelling. Normal range of motion. Distal neurovascular exam is intact Genitourinary: Examination deferred Neurologic: No gross neurologic deficits. Psychiatric: Normal mood. Course - Re-evaluation Re-evalutation: 04/21/20 00:00 Patient notes that he does not have any specific trauma but it sounds like he has a repetitive use type injury. Most likely shoulder tendinitis. Will offer him a sling, prescription ibuprofen, and a work note. Continue to use ice 20 minutes/h for pain and inflammation. Discharge - Discharge Clinical Impression: Shoulder tendinitis Qualifiers: Laterality: right Qualified Code(s): M77.8 - Other enthesopathies, not elsewhere classified Condition: Good Disposition: HOME, SELF-CARE Instructions: Sling as Treatment ([facility]), Tendonitis ([facility]) Prescriptions: Naproxen 500 mg PO BID 5 Days #10 tablet Referrals: ADA WILLOUGHBY PA-C [Primary Care Provider] - Follow up as needed
[2020-04-21 04:14] VITALS: BP 122/72
== END 2020-04-21 01:10 | disposition home or self-care (01) ==
LOC: ER 22:02
DX: M77.8 Other enthesopathies, not elsewhere classified (principal); M25.511 Pain in right shoulder; X50.3XXA Overexertion from repetitive movements, initial encounter; Y93.89 Activity, other specified; Y92.63 Factory as the place of occurrence of the external cause; Y99.0 Civilian activity done for income or pay; I10 Essential (primary) hypertension
CPT/HCPCS: 99283

== ENCOUNTER 2020-04-22 21:58 | Emergency (ER) | payer BC, OTHER ==
--- NOTE | 2020-04-22 22:39 | ER Document Report ---
ED General - General Chief Complaint: Ear Pain Stated Complaint: RIGHT EAR PAIN Primary Care Provider: ADA WILLOUGHBY PA-C [Primary Care Provider] - Follow up as needed Notes: Patient is a 24-year-old white male with a history of cerumen impaction who presents to the emergency department a day with a chief complaint of the same. 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 He states he was here recently with cerumen impaction of the left ear causing same complaints today is having in the right ear. Complains of muffled hearing in the right ear and some pain around the ear on that side of the head especially with increased noise. States he is tried to use the Debrox drops in the right ear without any significant improvement. He states last time he was here he have the ear irrigated and it was tremendously better. He denies any fever, nausea vomiting diarrhea, chills, night sweats, dizziness, neck pain or any other pain, complaints or concerns at this time. TRAVEL OUTSIDE OF THE [place] IN LAST 30 DAYS: No - Related Data Allergies/Adverse Reactions: No Known Allergies Allergy (Verified 04/22/20 22:33) Home Medications: HTN MEDS Past Medical History - Social History Smoking Status: Former Smoker Frequency of alcohol use: None Drug Abuse: None Family History: Reviewed & Not Pertinent - Past Medical History Cardiac Medical History: Reports: Hx Hypertension GI Medical History: Denies: Hx Hepatitis Infectious Medical History: Denies: Hx Hepatitis - Immunizations Immunizations up to date: Yes Review of Systems - Review of Systems Constitutional: denies: Fever EENT: denies: Eye pain Cardiovascular: denies: Chest pain Respiratory: denies: Cough Gastrointestinal: denies: Abdominal pain Genitourinary: denies: Burning Male Genitourinary: denies: Testicular pain Musculoskeletal: denies: Back pain Skin: denies: Change in color Hematologic/Lymphatic: denies: Easy bruising Neurological/Psychological: Headaches Physical Exam - Vital signs Vitals: Temp Pulse Resp BP Pulse Ox 98.5 F 94 20 157/99 H 98 04/22/20 22:06 04/22/20 22:06 04/22/20 22:06 04/22/20 22:06 04/22/20 22:06 - General General appearance: Appears well, Alert In distress: None - HEENT Head: Normocephalic, Atraumatic Eyes: Normal Conjunctiva: Normal Extraocular movements intact: Yes Eyelashes: Normal Pupils: PERRL Ears: Normal External canal: Cerumen impaction Tympanic membrane: Other - Obstructed on the right, left TM pearly kee with a normal EAC and clear canal Nasal: Normal Pharynx: Normal Neck: Normal - Respiratory Respiratory status: No respiratory distress Chest status: Nontender Breath sounds: Normal Chest palpation: Normal - Cardiovascular Rhythm: Regular Heart sounds: Normal auscultation - Neurological Neuro grossly intact: Yes Cognition: Normal Orientation: AAOx4 - Psychological Associated symptoms: Normal affect, Normal mood - Skin Skin Temperature: Warm Skin Moisture: Dry Skin Color: Normal Course - Re-evaluation Re-evalutation: 04/22/20 23:50 Right ear soaked with hydrogen peroxide solution. The ear was copiously irrigated with normal saline. A moderate amount of cerumen was removed. The patient reports feeling much better and hearing improved. He still has some retained cerumen. He will continue to gently flush the ear at home and use the Debrox drops he was previously given. He will continue to soak the ear as discussed. Counseled him not to poke or prod any instruments or Q-tips into the ear. Discussed with him at length the importance of outpatient follow-up and advised that he return here or any ER immediately with any new, persistent or worsening symptoms. He verbalized understood and agreed. - Vital Signs Vital signs: Temp Pulse Resp BP Pulse Ox 98.5 F 94 20 157/99 H 98 04/22/20 22:06 04/22/20 22:06 04/22/20 22:06 04/22/20 22:06 04/22/20 22:06 Discharge - Discharge Clinical Impression: Cerumen impaction Qualifiers: Laterality: right Qualified Code(s): H61.21 - Impacted cerumen, right ear Condition: Stable Disposition: HOME, SELF-CARE Instructions: Cerumen Impaction ([facility]) Additional Instructions: Follow-up with your regular doctor in 2 to 3 days for reevaluation. Return here or any ER immediately with any new, persistent or worsening symptoms. Forms: Return to Work Referrals: ADA WILLOUGHBY PA-C [Primary Care Provider] - Follow up as needed
[2020-04-23 00:13] VITALS: BP 150/89
== END 2020-04-23 00:12 | disposition home or self-care (01) ==
LOC: ER 21:58
DX: H61.21 Impacted cerumen, right ear (principal); I10 Essential (primary) hypertension
CPT/HCPCS: 99282

== ENCOUNTER 2020-04-24 22:13 | Emergency (ER) | payer BC, OTHER ==
[2020-04-24] MEDS ORDERED: ACETAMINOPHEN 325 MG TABLET PO ONE (23:34)
--- NOTE | 2020-04-24 23:37 | ER Document Report ---
ED ENT - General Chief Complaint: Sore Throat Stated Complaint: SORE THROAT Time Seen by Provider: 04/24/20 23:04 Primary Care Provider: ADA WILLOUGHBY PA-C [Primary Care Provider] - Follow up as needed TRAVEL OUTSIDE OF THE [place] IN LAST 30 DAYS: No - HPI Onset: This morning Onset/Duration: Sudden Quality of pain: Sharp Associated symptoms: Runny nose, Sore throat. denies: Cough, Ear drainage, Swollen glands Notes: Patient is a 24-year-old male with a past medical history of hypertension who presents with a sore throat. Patient states symptoms began this morning. He states it hurts to swallow. He has taken several doses of ibuprofen with minimal relief. Patient denies fevers or chills. No neck pain. No head pain. No earaches. He states he has a slight runny nose. Patient states he was to COVID tested 2 weeks ago and was negative. He is declining any COVID testing today. He denies being around any one with positive COVID. Patient denies any other symptoms. - Related Data Allergies/Adverse Reactions: No Known Allergies Allergy (Verified 04/22/20 22:33) Past Medical History - General Information source: Patient - Social History Smoking Status: Never Smoker Frequency of alcohol use: None Drug Abuse: None Family History: Reviewed & Not Pertinent Patient has homicidal ideation: No - Past Medical History Cardiac Medical History: Reports: Hx Hypertension GI Medical History: Denies: Hx Hepatitis Infectious Medical History: Denies: Hx Hepatitis - Immunizations Immunizations up to date: Yes Review of Systems - Review of Systems Notes: CONSTITUTIONAL: No fever, fatigue or weight loss. SKIN: No rash. HENT: Positive for sore throat and rhinorrhea EYES: No recent vision problems or eye pain. ENDOCRINE: No polyuria or polydipsia. CARDIOVASCULAR: No chest pain or edema. RESPIRATORY: No cough, shortness of breath, congestion, or wheezing. GASTROINTESTINAL: No abdominal pain, nausea, vomiting, bloody stools or diarrhea. GENITOURINARY: No dysuria. MUSCULOSKELETAL: No joint pain or swelling. LYMPHATIC: No swollen glands. NEUROLOGIC: No seizures. No headache, focal weakness or sensory changes. HEMATOLOGIC: No unusual bruising or bleeding. PSYCHIATRIC: No depression or anxiety. Physical Exam - Vital signs Vitals: Temp Pulse Resp BP Pulse Ox 99.1 F 91 14 144/102 H 97 10/09/20 22:34 04/24/20 22:34 04/24/20 22:34 04/24/20 22:34 04/24/20 22:34 - Notes Notes: VITAL SIGNS: Within normal limits. GENERAL: No acute distress, non-toxic appearance. HEAD: Normal with no signs of head trauma. EYES: EOMI, conjunctiva normal, no discharge. EARS: Hearing grossly intact. NOSE: Normal. THROAT: Oropharynx with slight erythema, no exudates. No peritonsillar abscess. NECK: Normal range of motion, no tenderness, supple, no lymphadenopathy, No adenopathy, no JVD. CHEST: Clear breath sounds bilaterally. No wheezes, rales, or rhonchi. CARDIAC: Regular rate and rhythm. S1 and S2, without murmurs, gallops, or rubs. VASCULAR: No Edema. ABDOMEN: Normal and soft LYMPATHTIC: No lymphadenopathy noted. MUSCULOSKELETAL: Good range of motion of all major joints. Extremities without clubbing, cyanosis or edema. NEUROLOGICAL: Alert and oriented x 3. No focal sensory or strength deficits. Speech normal. Follows commands appropriately. PSYCHIATRIC: Normal Affect, judgement and mood. SKIN: Normal appearance with no rashes or lesions. Course - Re-evaluation Re-evalutation: 04/24/20 23:53 Patient is afebrile. He appears well on exam. His airway is patent. He has some slight erythema of the posterior pharynx. No evidence for peritonsillar abscess. No cervical lymphadenopathy. Rapid strep was negative. It was sent for culture. I informed patient of the results. He declined any COVID testing as he recently had a negative test. Likely, this is a viral pharyngitis as he also has a runny nose. Patient was instructed to use lozenges, drink warm tea and honey, use Tylenol and ibuprofen as directed. He was given strict return precautions. He verbalized understanding. - Vital Signs Vital signs: Temp Pulse Resp BP Pulse Ox 97.4 F 94 14 145/97 H 97 04/24/20 23:46 04/24/20 23:46 04/24/20 23:46 04/24/20 23:46 04/24/20 23:46 Discharge - Discharge Clinical Impression: Pharyngitis Qualifiers: Pharyngitis/tonsillitis etiology: unspecified etiology Qualified Code(s): J02.9 - Acute pharyngitis, unspecified Condition: Good Disposition: HOME, SELF-CARE Instructions: Sore Throat ([facility]) Additional Instructions: Take Tylenol and ibuprofen as directed. Make sure you are drinking plenty of fluids. Use [id number] lozenges if needed. Return to the ER for any difficulty swallowing, fevers, difficulty breathing, any other concerning symptoms. Forms: Parent Work Note Referrals: ADA WILLOUGHBY PA-C [Primary Care Provider] - Follow up as needed
[2020-04-24 23:47] VITALS: BP 145/97
== END 2020-04-24 23:50 | disposition home or self-care (01) ==
LOC: ER 22:13
DX: J02.9 Acute pharyngitis, unspecified (principal); I10 Essential (primary) hypertension
CPT/HCPCS: 87070; 87077; 87880; 99283

== ENCOUNTER 2020-04-27 21:32 | Emergency (ER) | payer BC ==
[2020-04-27 22:12] VITALS: BP 139/98
--- NOTE | 2020-04-27 22:28 | ER Document Report ---
ED General - General Chief Complaint: Skin Problem Stated Complaint: SKIN ISSUE Time Seen by Provider: 04/27/20 22:13 Primary Care Provider: ADA WILLOUGHBY PA-C [Primary Care Provider] - Follow up as needed Mode of Arrival: Ambulatory Information source: Patient Notes: Healthy 24-year-old male coming in today with a small blister to his right middle finger that opened up and fell off leaving a small exposed area to the tip of his finger. 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 TRAVEL OUTSIDE OF THE [place] IN LAST 30 DAYS: No - Related Data Allergies/Adverse Reactions: No Known Allergies Allergy (Verified 04/27/20 22:08) Home Medications: bp meds Past Medical History - Social History Smoking Status: Never Smoker Frequency of alcohol use: None Drug Abuse: None Family History: Reviewed & Not Pertinent - Past Medical History Cardiac Medical History: Reports: Hx Hypertension Pulmonary Medical History: Reports: Hx Asthma GI Medical History: Denies: Hx Hepatitis Psychiatric Medical History: Reports: Hx Attention Deficit Hyperactivity Disorder, Hx Bipolar Disorder Infectious Medical History: Denies: Hx Hepatitis - Immunizations Immunizations up to date: Yes Review of Systems - Review of Systems Notes: Constitutional: No fevers. No chills. EENT: No eye redness. No eye pain. No ear pain. No sore throat. Cardiovascular: No chest pain. No palpitations. Respiratory: No cough. No shortness of breath. No respiratory distress. Gastrointestinal: No abdominal pain. No nausea, vomiting, or diarrhea. Genitourinary: Atraumatic. No lesions. No pain. No discharge. Musculoskeletal: Atraumatic. No swelling. No deformities. Skin: No rash or lesions. Lymphatic: No swollen lymph nodes. Neurologic: No headache. No syncope. Psychiatric: No suicidal or homicidal ideation. Physical Exam - Vital signs Vitals: Temp Pulse Resp BP Pulse Ox 98.4 F 114 H 20 139/98 H 96 04/27/20 21:56 04/27/20 21:56 04/27/20 21:56 04/27/20 21:56 04/27/20 21:56 - Notes Notes: General: Well-developed, well-nourished. In no acute distress. Non-toxic appearing. Cardiac: Well-perfused. Regular rate and rhythm. No murmurs, rubs, or gallops. Pulmonary: No respiratory distress. No cyanosis. Bilateral lung fiels are clear to auscultation. Abdominal: Non-distended. Non-rigid. Bowels sounds are present in all four quadrants. No guarding or rebound. HEENT: Head is atraumatic. Conjunctivae not reddened. No tearing. PERRL. EOMI. Orbits atraumatic. No periorbital swelling or erythema. Oropharynx is without erythema, swelling, or exudates. Neck: Supple. No adenopathy. No meningismus. Dermatologic: Small deroofed blister tip of right middle finger Chest: Atraumatic. No chest wall tenderness to palpation. Musculoskeletal: Moves all extremities well. No range of motion deficits. no muscular or joint tenderness. No paraspinal muscle tenderness. no midline spinal tenderness or step-off. Genitourinary: Examination deferred Neurologic: No gross neurologic deficits. Psychiatric: Normal mood. Course - Vital Signs Vital signs: Temp Pulse Resp BP Pulse Ox 98.4 F 114 H 20 139/98 H 96 04/27/20 21:56 04/27/20 21:56 04/27/20 21:56 04/27/20 21:56 04/27/20 21:56 Discharge - Discharge Clinical Impression: Blister of finger Qualifiers: Encounter type: initial encounter Qualified Code(s): S60.429A - Blister (nonthermal) of unspecified finger, initial encounter Condition: Good Disposition: HOME, SELF-CARE Instructions: Dressing Instructions for Open Wounds ([facility]) Prescriptions: Mupirocin [Bactroban 2% Ointment 22 gm] 1 applic TP BID #1 tube Referrals: ADA WILLOUGHBY PA-C [Primary Care Provider] - Follow up as needed
== END 2020-04-27 22:36 | disposition home or self-care (01) ==
LOC: ER 21:32
DX: S60.429A Blister (nonthermal) of unspecified finger, initial encounter (principal); X58.XXXA Exposure to other specified factors, initial encounter; I10 Essential (primary) hypertension
CPT/HCPCS: 99283

== ENCOUNTER 2020-04-30 21:19 | Emergency (ER) | payer BC ==
[2020-04-30 21:40] VITALS: BP 160/83
[2020-04-30] MEDS ORDERED: DOCUSATE SODIUM 100 MG/10 ML UDC PO ONE (22:53)
--- NOTE | 2020-04-30 23:21 | ER Document Report ---
HPI - HPI Time Seen by Provider: 04/30/20 22:40 Pain Level: 3 Context: Patient is a 24-year-old male who presents the emergency department with the chief complaint of right ear pain. Patient states that he has the same pain as he did when he had a left ear cerumen impaction. Patient states that he has been using Debrox in the right ear, but has not had any relief of his symptoms. - ROS Systems Reviewed and Negative: Yes All other systems reviewed and negative - CONSTITUTIONAL Constitutional: DENIES: Fever, Chills - EENT EENT: REPORTS: Ear Pain - Right. DENIES: Sore Throat, Nasal Drainage-Clear, Nasal Drainage-Purulent, Congestion, Eye problems - NEURO Neurology: DENIES: Headache - CARDIOVASCULAR Cardiovascular: DENIES: Chest pain - RESPIRATORY Respiratory: DENIES: Trouble Breathing, Coughing - GASTROINTESTINAL Gastrointestinal: DENIES: Abdominal Pain, Nausea, Patient vomiting - REPRODUCTIVE Reproductive: DENIES: : - DERM Skin Color: Normal Skin Problems: None Past Medical History - Social History Smoking Status: Former Smoker Frequency of alcohol use: None Drug Abuse: None Family History: Reviewed & Not Pertinent - Past Medical History Cardiac Medical History: Reports: Hx Hypertension Pulmonary Medical History: Reports: Hx Asthma GI Medical History: Denies: Hx Hepatitis Psychiatric Medical History: Reports: Hx Attention Deficit Hyperactivity Disorder, Hx Bipolar Disorder Infectious Medical History: Denies: Hx Hepatitis - Immunizations Immunizations up to date: Yes Vertical Provider Document - CONSTITUTIONAL Agree With Documented VS: Yes Exam Limitations: No Limitations General Appearance: No Apparent Distress - INFECTION CONTROL TRAVEL OUTSIDE OF THE [place] IN LAST 30 DAYS: No - HEENT HEENT: Atraumatic, Normocephalic, PERRLA. negative: Pharyngeal Exudate, Pharyngeal Tenderness, Pharyngeal Erythema, Tympanic Membrane Red, Tympanic Membrane Bulging Notes: Edema and erythema noted to right external auditory canal; cerumen impaction noted prior to disimpaction - RESPIRATORY Respiratory: Breath Sounds Normal, No Respiratory Distress - CARDIOVASCULAR Cardiovascular: Regular Rate, Regular Rhythm Pulses: Normal: Radial - MUSCULOSKELETAL/EXTREMETIES Musculoskeletal/Extremeties: FROM - NEURO Level of Consciousness: Awake, Alert, Appropriate Motor/Sensory: No Motor Deficit, No Sensory Deficit - DERM Integumentary: Warm, Dry Course - Re-evaluation Re-evalutation: 04/30/20 23:54 Cerumen impaction disimpacted by myself. Patient tolerated the procedure well. Patient does have a little bit of erythema noted to his right external auditory canal. We will place him on Ciprodex drops. He will follow up with his primary care provider. He will follow up with ENT as needed. Follow-up precautions were given. Verbal discharge instructions were given to the patient. They verbalized understanding. They are stable for discharge. - Vital Signs Vital signs: Temp Pulse Resp BP Pulse Ox 98.3 F 94 16 160/83 H 97 04/30/20 21:38 04/30/20 21:38 04/30/20 21:38 04/30/20 21:38 04/30/20 21:38 Discharge - Discharge Clinical Impression: Cerumen impaction Qualifiers: Laterality: right Qualified Code(s): H61.21 - Impacted cerumen, right ear Condition: Stable Disposition: HOME, SELF-CARE Additional Instructions: You were seen today in emergency department for right ear pain. You have a wax in your ears. It was cleaned out in the emergency department. Please follow-up with ENT if you continue to have problems with earwax. Be sure not to use Q- tips to clean your ears. You can use a washcloth and water to clean your ears. Place 4 drops of the Ciprodex to your right ear twice a day for 7 days. Forms: Return to Work Referrals: ADA WILLOUGHBY PA-C [Primary Care Provider] - Follow up as needed CASTILLO PILLAI DO [ASSOCIATE] - Follow up as needed
[2020-04-30] MEDS ORDERED: CIPROFLOXACIN HCL/DEXAMETH OTIC DROP 7.5 ML AD ONE (23:53)
== END 2020-04-30 23:00 | disposition home or self-care (01) ==
LOC: ER 21:19
DX: H61.21 Impacted cerumen, right ear (principal); H92.01 Otalgia, right ear; I10 Essential (primary) hypertension
CPT/HCPCS: 99283

== ENCOUNTER 2020-05-04 21:30 | Emergency (ER) | payer BC ==
[2020-05-04 21:48] VITALS: BP 153/100
--- NOTE | 2020-05-04 23:06 | ER Document Report ---
HPI - HPI Time Seen by Provider: 05/04/20 22:54 Pain Level: Denies Notes: 24-year-old male to the emergency department with complaints of sneezing that has gotten significantly worse over the past 24 to 48 hours. States that he will sneeze for over an hour. 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 Denies any fevers or chills. Denies any cough. He admits that he has a history of seasonal aller gies. As a young child, he used to be on a daily allergy medicine. However he has not been on one since. He states he saw his primary care who put him on aspirin but no allergy medicines. He denies any other symptoms such as sore throat, loss of taste, chest pain, shortness of breath, abdominal pain, diarrhea. Admits that he has not had a sneezing episode for over 3 hours. - ROS Systems Reviewed and Negative: Yes All other systems reviewed and negative - CONSTITUTIONAL Constitutional: DENIES: Fever, Chills - EENT EENT: DENIES: Sore Throat, Ear Pain, Congestion Notes: Sneezing - NEURO Neurology: DENIES: Headache - CARDIOVASCULAR Cardiovascular: DENIES: Chest pain - RESPIRATORY Respiratory: DENIES: Trouble Breathing, Coughing - GASTROINTESTINAL Gastrointestinal: DENIES: Abdominal Pain, Nausea, Patient vomiting, Diarrhea - MUSCULOSKELETAL Musculoskeletal: DENIES: Extremity pain, Back Pain, Neck Pain, Swelling - DERM Skin Color: Normal Skin Problems: None Past Medical History - General Information source: Patient - Social History Smoking Status: Never Smoker Frequency of alcohol use: None Drug Abuse: None Family History: Reviewed & Not Pertinent - Past Medical History Cardiac Medical History: Reports: Hx Hypertension Pulmonary Medical History: Reports: Hx Asthma GI Medical History: Denies: Hx Hepatitis Psychiatric Medical History: Reports: Hx Attention Deficit Hyperactivity Disorder, Hx Bipolar Disorder Infectious Medical History: Denies: Hx Hepatitis - Immunizations Immunizations up to date: Yes Vertical Provider Document - CONSTITUTIONAL Agree With Documented VS: Yes Exam Limitations: No Limitations General Appearance: WD/WN, No Apparent Distress - INFECTION CONTROL TRAVEL OUTSIDE OF THE [place] IN LAST 30 DAYS: No - HEENT HEENT: Atraumatic, Normocephalic, PERRLA Notes: Boggy nasal mucosa. Mild postnasal drip. No epistaxis. Airway is grossly patent. No voice change or drooling. No lymphadenopathy. TMs are clear bilaterally - NECK Neck: Normal Inspection, Supple - RESPIRATORY Respiratory: Breath Sounds Normal, No Respiratory Distress. negative: Rales, Rhonchi, Wheezing - CARDIOVASCULAR Cardiovascular: Regular Rate, Regular Rhythm, No Murmur - GI/ABDOMEN Gastrointestinal: Abdomen Soft, Abdomen Non-Tender, No Organomegaly Notes: Obesity - BACK Back: Normal Inspection - MUSCULOSKELETAL/EXTREMETIES Musculoskeletal/Extremeties: MAARPIT, FROM - NEURO Level of Consciousness: Awake, Alert, Appropriate Motor/Sensory: No Motor Deficit, No Sensory Deficit - DERM Integumentary: Warm, Dry, No Rash Course - Re-evaluation Re-evalutation: Impression: Allergic rhinitis. We will send patient home with Flonase and Claritin. Patient agrees with the plan. Follow-up with primary care. - Vital Signs Vital signs: Temp Pulse Resp BP Pulse Ox 98.2 F 101 H 16 153/100 H 96 05/04/20 21:46 05/04/20 21:46 05/04/20 21:46 05/04/20 21:46 05/04/20 21:46 Discharge - Discharge Clinical Impression: Sneezing Allergic rhinitis Qualifiers: Allergic rhinitis trigger: unspecified Allergic rhinitis seasonality: unspecified Qualified Code(s): J30.9 - Allergic rhinitis, unspecified Condition: Stable Disposition: HOME, SELF-CARE Instructions: Nasal Corticosteroid Inhaler ([facility]) Additional Instructions: Follow up with ENT without fail. Return if worse. Take medicines as prescribed. Prescriptions: Loratadine [Claritin 10 mg Tablet] 10 mg PO DAILY #30 tablet Fluticasone Propionate [Flonase Allergy Relief] 1 spray NS DAILY #1 spray.susp Forms: Return to Work Referrals: ADA WILLOUGHBY PA-C [Primary Care Provider] - Follow up in 3-5 days
== END 2020-05-04 23:10 | disposition home or self-care (01) ==
LOC: ER 21:30
DX: J45.909 Unspecified asthma, uncomplicated (principal); R06.7 Sneezing; R09.82 Postnasal drip
CPT/HCPCS: 99283

== ENCOUNTER 2020-05-06 12:42 | Emergency (ER) | payer BC ==
[2020-05-06 12:46] VITALS: BP 140/93
[2020-05-06] MEDS ORDERED: IBUPROFEN 800 MG TABLET PO ONE (12:51)
[2020-05-06] MEDS ORDERED: LIDOCAINE 2% VISCOUS SOLN 15 ML UDCUP PO ONE (12:51)
--- NOTE | 2020-05-06 12:52 | ER Document Report ---
HPI - HPI Patient complains to provider of: Sore throat Time Seen by Provider: 05/06/20 12:48 Onset: This morning Onset/Duration: Gradual Quality of pain: Achy Pain Level: 3 Context: Patient states he woke up with sore throat this morning. Patient denies any fever. Patient denies any other symptoms at this time. Associated Symptoms: Sore throat. denies: Earache, Fever, Headache, Vomiting, Rhinnorhea Exacerbated by: Denies Relieved by: Denies Similar symptoms previously: Yes Recently seen / treated by doctor: No - ROS ROS below otherwise negative: Yes Systems Reviewed and Negative: Yes All other systems reviewed and negative - CONSTITUTIONAL Constitutional: DENIES: Fever, Chills - EENT EENT: REPORTS: Sore Throat - mild erythema. DENIES: Ear Pain, Eye problems - NEURO Neurology: DENIES: Headache - CARDIOVASCULAR Cardiovascular: DENIES: Chest pain - RESPIRATORY Respiratory: DENIES: Trouble Breathing, Coughing - GASTROINTESTINAL Gastrointestinal: DENIES: Nausea, Patient vomiting - MUSCULOSKELETAL Musculoskeletal: DENIES: Extremity pain - DERM Skin Color: Normal Skin Problems: None Past Medical History - General Information source: Patient - Social History Smoking Status: Never Smoker Frequency of alcohol use: None Drug Abuse: None Family History: Reviewed & Not Pertinent Patient has homicidal ideation: No - Past Medical History Cardiac Medical History: Reports: Hx Hypertension Pulmonary Medical History: Reports: Hx Asthma GI Medical History: Denies: Hx Hepatitis Psychiatric Medical History: Reports: Hx Attention Deficit Hyperactivity Disorder, Hx Bipolar Disorder Infectious Medical History: Denies: Hx Hepatitis Surgical Hx: Negative - Immunizations Immunizations up to date: Yes Vertical Provider Document - CONSTITUTIONAL Agree With Documented VS: Yes Exam Limitations: No Limitations General Appearance: WD/WN, No Apparent Distress - INFECTION CONTROL TRAVEL OUTSIDE OF THE [place] IN LAST 30 DAYS: No - HEENT HEENT: Atraumatic, Normocephalic, Pharyngeal Tenderness, Pharyngeal Erythema. negative: Tympanic Membrane Red, Tympanic Membrane Bulging - NECK Neck: Normal Inspection, Supple. negative: Lymphadenopathy-Left, Lymphadenopathy-Right - RESPIRATORY Respiratory: Breath Sounds Normal, No Respiratory Distress, Chest Non-Tender - CARDIOVASCULAR Cardiovascular: Regular Rate, Regular Rhythm, No Murmur - MUSCULOSKELETAL/EXTREMETIES Musculoskeletal/Extremeties: MAEW - NEURO Level of Consciousness: Awake, Alert, Appropriate Motor/Sensory: No Motor Deficit - DERM Integumentary: Warm, Dry, No Rash Course - Re-evaluation Re-evalutation: 05/06/20 13:56 Rapid strep test negative, throat culture is pending at this time. Patient without any other symptoms, nontoxic in appearance. No concern for [employer]. Good return precautions discussed with patient. - Vital Signs Vital signs: Temp Pulse Resp BP Pulse Ox 98 F 94 16 140/93 H 97 05/06/20 12:45 05/06/20 12:45 05/06/20 12:45 05/06/20 12:45 05/06/20 12:45 - Laboratory Laboratory results interpreted by me: 05/06/20 13:36 Labs- All tests 24 hr 05/06/20 12:53 Group A Strep Rapid NEGATIVE Discharge - Discharge Clinical Impression: Sore throat Condition: Stable Disposition: HOME, SELF-CARE Instructions: Sore Throat ([facility]) Additional Instructions: Return immediately for any new or worsening symptoms Followup with your primary care provider, call tomorrow to make a followup appointment Throat culture is pending, we will call if you need any different treatment Prescriptions: Naproxen [Naprosyn 250 Nmg Tablet] 1 tab PO BID #14 tablet Forms: Return to Work Referrals: ADA WILLOUGHBY PA-C [Primary Care Provider] - Follow up as needed
== END 2020-05-06 13:52 | disposition home or self-care (01) ==
LOC: ER 12:42
DX: J02.9 Acute pharyngitis, unspecified (principal); J45.909 Unspecified asthma, uncomplicated; I10 Essential (primary) hypertension
CPT/HCPCS: 99283; 87070; 87880; J3490

== ENCOUNTER 2020-05-08 22:39 | Emergency (ER) | payer BC ==
[2020-05-08 22:47] VITALS: BP 147/98
--- NOTE | 2020-05-08 23:04 | ER Document Report ---
HPI - HPI Patient complains to provider of: sore throat Time Seen by Provider: 05/08/20 22:59 Pain Level: 3 Context: 24-year-old male past medical history significant for hypertension presents to the emergency room complaining of a sore throat that started approximately 8 hours prior to arrival. He denies any fevers. Did not take any medications for his symptoms. States is tolerating p.o. food and fluids without difficulty but does state it hurts to swallow. He was seen here 2 days ago for similar symptoms had a negative rapid strep, reviewed his throat culture was also negative for any bacteria. No recent travel. No COVID-19 exposure. Associated Symptoms: None Exacerbated by: Other - Swallowing Relieved by: Denies Similar symptoms previously: Yes - 2 days ago Recently seen / treated by doctor: Yes - Seen in the emergency room 2 days ago - ROS Systems Reviewed and Negative: Yes All other systems reviewed and negative - CONSTITUTIONAL Constitutional: DENIES: Fever, Chills - EENT EENT: REPORTS: Sore Throat. DENIES: Ear Pain, Eye problems - NEURO Neurology: DENIES: Headache, Weakness, Vision blurred, Dizzinesss / Vertigo - CARDIOVASCULAR Cardiovascular: DENIES: Chest pain - RESPIRATORY Respiratory: DENIES: Trouble Breathing, Coughing - GASTROINTESTINAL Gastrointestinal: DENIES: Abdominal Pain, Black / Bloody Stools - URINARY Urinary: DENIES: Dysuria, Urgency, Frequency - REPRODUCTIVE Reproductive: DENIES: : - MUSCULOSKELETAL Musculoskeletal: DENIES: Extremity pain Past Medical History - General Information source: Patient - Social History Smoking Status: Never Smoker Chew tobacco use (# tins/day): No Frequency of alcohol use: None Drug Abuse: None Family History: Reviewed & Not Pertinent Patient has homicidal ideation: No - Past Medical History Cardiac Medical History: Reports: Hx Hypertension Pulmonary Medical History: Reports: Hx Asthma GI Medical History: Denies: Hx Hepatitis Psychiatric Medical History: Reports: Hx Attention Deficit Hyperactivity Disorder, Hx Bipolar Disorder Infectious Medical History: Denies: Hx Hepatitis - Immunizations Immunizations up to date: Yes Vertical Provider Document - CONSTITUTIONAL Agree With Documented VS: Yes Exam Limitations: No Limitations General Appearance: Mild Distress Notes: VITAL SIGNS: Within normal limits. GENERAL: Mild acute distress, non-toxic appearance. HEAD: Normal with no signs of head trauma. EYES: PERRLA, EOMI, conjunctiva normal, no discharge. EARS: Hearing grossly intact. Tympanic membranes intact bilaterally without any erythema or bulging. Bilateral outer nails without erythema or swelling. NOSE: Normal. Turbinates are not erythematous, clear discharge is noted. Sinuses are nontender to palpation. THROAT: Oropharynx is normal. No pharyngeal erythema, no exudate. No tonsillar enlargement. No signs of a peritonsillar abscess. NECK: Normal range of motion, no tenderness, supple, no lymphadenopathy, No adenopathy, no JVD. Negative Meningismus, Negative brudzzinski, Negative Kernig's CHEST: Clear breath sounds bilaterally. No wheezes, rales, or rhonchi. CARDIAC: Regular rate and rhythm. S1 and S2, without murmurs, gallops, or rubs. VASCULAR: No Edema. Peripheral pulses normal and equal in all extremities. ABDOMEN: Normal and soft with no tenderness, no masses or pulsatile masses. GASTROINTESTINAL: Bowel sounds normal GENITOURINARY: Normal, No tenderness LYMPATHTIC: No lymphadenopathy noted. MUSCULOSKELETAL: Good range of motion of all major joints. Extremities without clubbing, cyanosis or edema. NEUROLOGICAL: Alert and oriented x 3. No focal sensory or strength deficits. Speech normal. Follows commands appropriately. PSYCHIATRIC: Normal Affect, judgement and mood. SKIN: Normal appearance with no rashes or lesions. - INFECTION CONTROL TRAVEL OUTSIDE OF THE [place] IN LAST 30 DAYS: No Course - Re-evaluation Re-evalutation: 05/08/20 23:04 Patient presents with a sore throat that started earlier this evening. He was seen here 2 days ago with a negative rapid strep. His throat culture is also negative. Patient states his sore throat got worse earlier this evening. He denies any fevers. No concerns for peritonsillar abscess. Talking in full sentences, handling his own secretions. Patient was counseled on the viral illness. Patient be discharged home on viscous lidocaine, supportive therapy, follow-up primary care physician if not improving in 2 to 3 days. Patient was given strict return to the emergency room guidelines. Return for any new or worsening symptoms. All questions were answered. Patient verbalized understanding and agrees with plan of care. 05/08/20 23:04 05/08/20 23:24 - Vital Signs Vital signs: Temp Pulse Resp BP Pulse Ox 98.4 F 100 18 147/98 H 97 05/08/20 22:58 05/08/20 22:45 05/08/20 22:45 05/08/20 22:45 05/08/20 22:45 Discharge - Discharge Clinical Impression: Sore throat Condition: Stable Disposition: HOME, SELF-CARE Instructions: Sore Throat ([facility]) Additional Instructions: Use the viscous lidocaine as prescribed. Outpatient follow-up with your primary care physician if not improving in 2 to 3 days. Return to the emergency room for any new or worsening symptoms. Prescriptions: Lidocaine HCl [Xylocaine 2% Viscous Soln 15 ml Udcup] 15 ml PO Q4H PRN #100 ml PRN Reason: Forms: Return to Work Referrals: ADA WILLOUGHBY PA-C [Primary Care Provider] - Follow up as needed
[2020-05-08] MEDS ORDERED: LIDOCAINE 2% VISCOUS SOLN 15 ML UDCUP PO ONE (23:09)
== END 2020-05-08 23:33 | disposition home or self-care (01) ==
LOC: ER 22:39
DX: J02.9 Acute pharyngitis, unspecified (principal); I10 Essential (primary) hypertension
CPT/HCPCS: 99283; J3490

== ENCOUNTER 2020-05-11 21:09 | Emergency (ER) | payer BC ==
--- NOTE | 2020-05-11 23:14 | ER Document Report ---
HPI - HPI Time Seen by Provider: 05/11/20 23:04 Pain Level: 3 Context: Patient is a 24-year-old male who presents emergency department with a chief complaint of sore throat. Patient has been seen here multiple times in the past 2 months for sore throat. Patient reports this is intermittent and comes and go in intensity. Patient reports he has multiple negative throat cultures, negative mono, and negative Covid test last month. Patient denies fever. Patient has no ear pain. Patient states that he is on oral antibiotics at this time and they are not helping. Patient has not followed up with his primary care physician or ENT. - REPRODUCTIVE Reproductive: DENIES: : Past Medical History - General Information source: Patient - Social History Smoking Status: Former Smoker Frequency of alcohol use: None Drug Abuse: None Lives with: Alone Family History: Reviewed & Not Pertinent - Past Medical History Cardiac Medical History: Reports: Hx Hypertension Pulmonary Medical History: Reports: Hx Asthma EENT Medical History: Reports: None Neurological Medical History: Reports: None Endocrine Medical History: Reports: None Renal/ Medical History: Reports: None Malignancy Medical History: Reports None GI Medical History: Reports: None. Denies: Hx Hepatitis Musculoskeletal Medical History: Reports None Skin Medical History: Reports None Psychiatric Medical History: Reports: Hx Attention Deficit Hyperactivity Disorder, Hx Bipolar Disorder Traumatic Medical History: Reports: None Infectious Medical History: Reports: None. Denies: Hx Hepatitis Past Surgical History: Reports: None - Immunizations Immunizations up to date: Yes Vertical Provider Document - CONSTITUTIONAL Agree With Documented VS: Yes Exam Limitations: No Limitations General Appearance: No Apparent Distress - INFECTION CONTROL TRAVEL OUTSIDE OF THE [place] IN LAST 30 DAYS: No - HEENT HEENT: Atraumatic, Normal ENT Exam, Normocephalic, PERRLA Notes: Throat is slightly erythematous. No exudate. Airway is patent. - NECK Neck: Normal Inspection - RESPIRATORY Respiratory: Breath Sounds Normal, No Respiratory Distress - CARDIOVASCULAR Cardiovascular: Regular Rate, Regular Rhythm - GI/ABDOMEN Gastrointestinal: Abdomen Soft, Abdomen Non-Tender, Normal Bowel Sounds - MUSCULOSKELETAL/EXTREMETIES Musculoskeletal/Extremeties: FROM - NEURO Level of Consciousness: Awake, Alert, Appropriate - DERM Integumentary: Warm, Dry, No Rash Course - Re-evaluation Re-evalutation: 05/11/20 23:20 Patient has had negative strep, negative mono, negative Covid. Patient reports intermittent sore throat over the past 2 months. Has not followed up with his PCP or ENT. Will obtain a throat culture to check for fungus to rule out. Patient is on oral antibiotics at this time without any improvement. Patient is instructed to follow-up with ENT. Will provide the patient with Magic lucy thwash. - Vital Signs Vital signs: Temp Pulse Resp BP Pulse Ox 98.7 F 99 20 151/81 H 97 05/11/20 22:08 05/11/20 22:08 05/11/20 22:08 05/11/20 22:08 05/11/20 22:08 Discharge - Discharge Clinical Impression: Sore throat Condition: Stable Disposition: HOME, SELF-CARE Additional Instructions: *Today received emergency department for sore throat. You have been seen here multiple times with a negative strep, negative mono and negative Covid test. He states his symptoms feel very similar. You are on your oral antibiotics at this time without any improvement. We have obtained a swab of your throat in which we will check for fungus and yeast. You will be given a prescription for Magic mouthwash. Use this only as prescribed. Please return to the emergency department if symptoms worsen or change. Prescriptions: Nystatin/Dexameth/Diphen [Magic Mouthwash ([facility] Formula) Susp] 5 ml PO QID #120 ml Forms: Return to Work Referrals: ADA WILLOUGHBY PA-C [Primary Care Provider] - Follow up as needed CASTILOL PILLAI DO [ASSOCIATE] - Follow up as needed
[2020-05-12 03:58] VITALS: BP 148/80
== END 2020-05-12 00:12 | disposition home or self-care (01) ==
LOC: ER 21:09
DX: J02.9 Acute pharyngitis, unspecified (principal); I10 Essential (primary) hypertension; J45.909 Unspecified asthma, uncomplicated; Z87.891 Personal history of nicotine dependence
CPT/HCPCS: 36415; 87101; 99283

== ENCOUNTER 2020-05-13 13:52 | Emergency (ER) | payer BC ==
[2020-05-13 13:58] VITALS: BP 134/88
--- NOTE | 2020-05-13 14:15 | ER Document Report ---
ED Medical Screen (RME) - General Chief Complaint: Headache Stated Complaint: MIGRAINE Time Seen by Provider: 05/13/20 14:12 Primary Care Provider: ADA WILLOUGHBY PA-C [Primary Care Provider] - Follow up as needed Mode of Arrival: Ambulatory Information source: Patient Notes: 24-year-old male presents to ED for history of migraines. He states this migraine has just last for about a day and usually he can take some Tylenol and it goes away and Tylenol did not help today. TRAVEL OUTSIDE OF THE [place] IN LAST 30 DAYS: No - Related Data Allergies/Adverse Reactions: No Known Allergies Allergy (Verified 05/11/20 23:00) Past Medical History - Past Medical History Cardiac Medical History: Reports: Hx Hypertension Pulmonary Medical History: Reports: Hx Asthma GI Medical History: Denies: Hx Hepatitis Psychiatric Medical History: Reports: Hx Attention Deficit Hyperactivity Disorder, Hx Bipolar Disorder Infectious Medical History: Denies: Hx Hepatitis - Immunizations Immunizations up to date: Yes Physical Exam - Vital signs Vitals: Temp Pulse Resp BP Pulse Ox 98.0 F 77 16 134/88 H 97 05/13/20 13:56 05/13/20 13:56 05/13/20 13:56 05/13/20 13:56 05/13/20 13:56 Course - Vital Signs Vital signs: Temp Pulse Resp BP Pulse Ox 98.0 F 77 16 134/88 H 97 05/13/20 13:56 05/13/20 13:56 05/13/20 13:56 05/13/20 13:56 05/13/20 13:56 Doctor's Discharge - Discharge Referrals: ADA WILLOUGHBY PA-C [Primary Care Provider] - Follow up as needed
--- NOTE | 2020-05-13 14:21 | ER Document Report ---
ED Headache - General Chief Complaint: Headache Stated Complaint: MIGRAINE Time Seen by Provider: 05/13/20 14:12 Primary Care Provider: JONELLE BHAT MD [NO LOCAL MD] - Follow up as needed ADA WILLOUGHBY PA-C [Primary Care Provider] - Follow up as needed Mode of Arrival: Ambulatory Information source: Patient Notes: 24-year-old male presents to ED for history of migraines. He states this migraine has just last for about a day and usually he can take some Tylenol and it goes away and Tylenol did not help today. He states he had a CT of the head about 2 weeks ago at his primary care doctor's office. He states he has been having these headaches since he was a child. 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 He is alert oriented respirations regular nonlabored speaking in full sentences. He states he has not had any new injuries. Constitutional: Negative for fever. HENT: Negative for sore throat. Eyes: Negative for visual changes. Cardiovascular: Negative for chest pain. Respiratory: Negative for shortness of breath. Gastrointestinal: Negative for abdominal pain, vomiting or diarrhea. She has had nausea but no vomiting Genitourinary: Negative for dysuria. Musculoskeletal: Negative for back pain. Skin: Negative for rash. Neurological: She states she has chronic headaches and this headache is been more than 24 hours 10 point ROS negative except as marked above and in HPI. VITAL SIGNS: Within normal limits. GENERAL: No acute distress, non-toxic appearance. HEAD: Normal with no signs of head trauma. EYES: PERRLA, EOMI, conjunctiva normal, no discharge. EARS: Hearing grossly intact. NOSE: Normal. THROAT: Oropharynx is normal. NECK: Normal range of motion, no tenderness, supple, no lymphadenopathy, No adenopathy, no JVD. CHEST: Clear breath sounds bilaterally. No wheezes, rales, or rhonchi. CARDIAC: Regular rate and rhythm. S1 and S2, without murmurs, gallops, or rubs. VASCULAR: No Edema. Peripheral pulses normal and equal in all extremities. ABDOMEN: Normal and soft with no tenderness, no masses or pulsatile masses. GASTROINTESTINAL: Bowel sounds normal GENITOURINARY: Normal, No tenderness LYMPATHTIC: No lymphadenopathy noted. MUSCULOSKELETAL: Good range of motion of all major joints. Extremities without clubbing, cyanosis or edema. NEUROLOGICAL: Alert and oriented x 3. No focal sensory or strength deficits. Speech normal. Follows commands appropriately. PSYCHIATRIC: Normal Affect, judgement and mood. SKIN: Normal appearance with no rashes or lesions. TRAVEL OUTSIDE OF THE [place] IN LAST 30 DAYS: No - HPI Patient complains to provider of: "Migraine" Patient reports: Hx chronic headaches Onset: Yesterday Onset was: Gradual Timing: Still present Quality of pain: Sharp Severity: Moderate Pain Level: 3 Associated symptoms: Nausea/vomiting - Nausea no vomiting Exacerbated by: Light, Noise, Movement Similar symptoms previously: Yes Recently seen / treated by doctor: Yes - Related Data Allergies/Adverse Reactions: No Known Allergies Allergy (Verified 05/13/20 14:35) Past Medical History - General Information source: Patient - Social History Smoking Status: Never Smoker Frequency of alcohol use: None Drug Abuse: None Lives with: Family Family History: Reviewed & Not Pertinent - Past Medical History Cardiac Medical History: Reports: Hx Hypertension Pulmonary Medical History: Reports: Hx Asthma Neurological Medical History: Reports: Hx Migraine Endocrine Medical History: Reports: None Renal/ Medical History: Reports: None Malignancy Medical History: Reports None GI Medical History: Reports: None Musculoskeletal Medical History: Reports None Skin Medical History: Reports None Psychiatric Medical History: Reports: Hx Attention Deficit Hyperactivity Disorder, Hx Bipolar Disorder Traumatic Medical History: Reports: None Infectious Medical History: Reports: None Surgical Hx: Negative Past Surgical History: Reports: None - Immunizations Immunizations up to date: Yes Hx Diphtheria, Pertussis, Tetanus Vaccination: Yes - 2014 Physical Exam - Vital signs Vitals: Temp Pulse Resp BP Pulse Ox 98.0 F 77 16 134/88 H 97 05/13/20 13:56 05/13/20 13:56 05/13/20 13:56 05/13/20 13:56 05/13/20 13:56 Course - Re-evaluation Re-evalutation: 05/13/20 14:20 Have discussed prescription for Compazine and ibuprofen for patient to take with Benadryl for his headache. He can take this once every 6 hours as long as he is good to be home and not trying to drive as these will make him sleepy. If this does not work or he has any increase in symptoms he is to come back to the emergency room immediately. Patient has verbalized agreement with this treatment plan as he is driving and does not want medication that makes it so he can not drive while he is in the emergency room. - Vital Signs Vital signs: Temp Pulse Resp BP Pulse Ox 98.0 F 77 16 134/88 H 97 05/13/20 13:56 05/13/20 13:56 05/13/20 13:56 05/13/20 13:56 05/13/20 13:56 Discharge - Discharge Clinical Impression: Headache Qualifiers: Headache type: unspecified Headache chronicity pattern: unspecified pattern Intractability: not intractable Qualified Code(s): R51.9 - Headache, unspecified Condition: Stable Disposition: HOME, SELF-CARE Additional Instructions: HEADACHE: The physician does not feel that the headache you are experiencing has a serious underlying cause. Most headaches are due to emotional stress, with resultant muscle tension (tension headache). Occasionally, headaches are secondary to changes in the blood vessels of the scalp (vascular headache and migraine headache). Sometimes, a headache is the first symptom of another developing illness, such as a viral infection. You have no evidence of stroke, bleeding, meningitis, or other serious cause of your headache. The treatment of headaches varies with the severity and cause of the pain. Not all headaches need pain shots. In fact, there is evidence that using narcotics for headaches may make them worse in the long run. The physician will determine the therapy that's in your best interest. If you develop a fever, if the headache is different from any you've previously experienced, or if the headache progressively worsens, then call your physician at once or go to the emergency room. USE OF DIPHENHYDRAMINE: Diphenhydramine (Benadryl) is an antihistamine and has been recommended to help treat your headache and to prevent side effects of other medications used to treat headaches. The medication can be repeated four times daily. Age Elixir (12.5 mg/tsp) 25 mg pill adult 1-2 tabs Antihistamines may cause drowsiness, especially with the first dose. Do not operate machinery or drive while under the effects of the medication. Do not combine the medication with alcohol, or with any other medication without talking to your doctor. COMPAZINE FOR HEADACHE: You have received therapy for headaches, Compazine. This treatment is dramatically successful in relieving the headache in about 50 percent of cases. When it works, it provides a rapid method of eliminating the headache without resorting to narcotics (and the problems associated with them). Most patients still feel fully alert after the Compazine, but others may be slightly drowsy. It's best not to drive or work with machinery for six to eight hours. Do not take alcohol or other medication unless you discuss it with the doctor. If you develop tightness and spasms in your muscles, especially the neck and tongue, you should return. This is a side effect which can be treated. Ibuprofen Ibuprofen is an excellent, safe drug for pain control. In addition, it has potent antiinflammatory effects which are beneficial, especially in the treatment of injuries, arthritis, or tendonitis. It's best to take ibuprofen with food. Persons with ulcer disease or allergy to aspirin should notify their physician of this before taking ibuprofen. Take the medication exactly as prescribed. Don't take additional doses unless instructed to do so by your doctor. If you develop wheezing, shortness of breath, hives, faintness, stomach pain, vomiting, or dark black stools, return for re-evaluation at once. FOLLOW-UP CARE: If you have been referred to a physician for follow-up care, call the [facility] office for an appointment as you were instructed or within the next two days. If you experience worsening or a significant change in your symptoms, notify the physician immediately or return to the Emergency Department at any time for re-evaluation. Prescriptions: Prochlorperazine Maleate [Compazine] 10 mg PO Q6HP PRN #20 tablet PRN Reason: For Headache Ibuprofen [Motrin 600 mg Tablet] 600 mg PO Q8HP PRN #14 tablet PRN Reason: Forms: Elevated Blood Pressure, Return to Work Referrals: ADA WILLOUGHBY PA-C [Primary Care Provider] - Follow up as needed JONELLE BHAT MD [NO LOCAL MD] - Follow up as needed
== END 2020-05-13 14:35 | disposition home or self-care (01) ==
LOC: ER 13:52
DX: R51.9 Headache, unspecified (principal); R11.0 Nausea; I10 Essential (primary) hypertension
CPT/HCPCS: 99283